=== PATIENT | female | born 1995 | race Caucasian/White ===

== ENCOUNTER 2018-02-21 07:59 | Emergency (ER) | payer BC, OTHER ==
[2018-02-21 08:04] VITALS: BP 117/72
--- NOTE | 2018-02-21 08:17 | EDPHY ---
H & P Time Seen by Provider: 02/21/18 08:06 HPI/ROS: CHIEF COMPLAINT: Medication refill request HISTORY OF PRESENT ILLNESS: 22-year-old female presents to the emergency department requesting refill of her metformin. The patient takes 500 mg daily for her PCOS. She has been on this medication for the last 2 and half years. She states that she is originally from [facility] and is studying at [employer] but is here studying at [employer] for this summer and has been without her metformin medication for the last 2 weeks. She does not have a primary care provider. She has not gone to the [employer]. Currently she has no complaints. Denies abdominal pain, chest pain, difficulty breathing. Her last menstrual period was January 07. She has a history of irregular periods. She just recently stopped oral contraceptive pills. She denies . REVIEW OF SYSTEMS: Constitutional: No fever, no chills. Eyes: No double or blurry vision. ENT: No sore throat. Respiratory: No cough, no shortness of breath. Cardiac: No chest pain. Gastrointestinal: No abdominal pain, vomiting or diarrhea. Genitourinary: No dysuria. Musculoskeletal: No neck or back pain. Skin: No rashes. Neurological: No headache. Past Medical/Surgical History: Polycystic ovarian syndrome Social History: Originally from 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 Vital signs are stable Eyes: Pupils equal and round. Extraocular motions are all intact. ENT: Mouth: Mucous membranes moist. Respiratory: No wheezing, rhonchi, or rales, lungs are clear to auscultation. Cardiovascular: Regular rate and rhythm. Gastrointestinal: Abdomen is soft and nontender, no masses, no rebound or guarding, bowel sounds normal. Neurological: Alert and oriented x 3, cranial nerves II through XII grossly intact Skin: Warm and dry, no rashes. Musculoskeletal: Nontender to palpate along the cervical, thoracic or lumbar spine. Neck is supple. Extremities: Full range of motion and no peripheral edema. Psychiatric: Patient is oriented X 3, there is no agitation. Constitutional: Initial Vital Signs Temperature (C) 36.7 C 02/21/18 07:59 Heart Rate 65 02/21/18 07:59 Respiratory Rate 18 02/21/18 07:59 Blood Pressure 117/72 02/21/18 07:59 O2 Sat (%) 97 02/21/18 07:59 O2 Delivery Mode Room Air Allergies/Adverse Reactions: No Known Allergies Allergy (Unverified 02/21/18 08:04) Home Medications: Medication Instructions Recorded Metformin HCl [Fortamet] 500 mg PO DAILY #30 tab 02/21/18 metFORMIN HCL [Metformin HCl] 500 mg PO DAILY 02/21/18 Medical Decision Making ED Course/Re-evaluation: 22-year-old healthy female who currently has no complaints presents to the emergency department requesting refill of her metformin 500 mg. She has been on this medication for over 2 and half years. She was given a prescription for 500 mg metformin #30. She was also given referral to primary care provider operations support professionals, car lubricator on-call as well as [facility]. Patient was encouraged to return if she developed abdominal pain or any other concerns. She was comfortable with this plan. Differential Diagnosis: Including but not limited to medication refill request, polycystic ovarian syndrome, urinary tract infection, pyelonephritis, kidney stone, acute appendicitis Departure - Departure Disposition: Home, Routine, Self-Care Clinical Impression: Medication refill, Polycystic ovarian syndrome Condition: Good Instructions: Polycystic Ovarian Syndrome (ED), Medicine Refill (ED) Additional Instructions: Continue your metformin as prescribed. Follow up with primary care provider or [facility] or OBGYN as discussed. Return to the emergency department if you develop any abdominal pain or if you have any other concerns. Referrals: JENNIFER Cid,. [Clinic] - As per Instructions Rita Zapata MD [Medical Doctor] - As per Instructions (Primary care provider operations support professionals) Tamera Marshall DO [Doctor of Osteopathy] - As per Instructions (OBGYN on-call) Prescriptions: Metformin HCl [Fortamet] 500 mg PO DAILY #30 tab
== END 2018-02-21 08:19 | disposition home or self-care (01) ==
DX: Z76.0 Encounter for issue of repeat prescription (principal); E28.2 Polycystic ovarian syndrome

== ENCOUNTER 2018-04-05 17:33 | Emergency (ER) | payer BC, OTHER ==
[2018-04-05 17:46] VITALS: BP 126/80
--- NOTE | 2018-04-05 17:53 | EDPHY ---
H & P Time Seen by Provider: 04/05/18 17:49 HPI/ROS: CHIEF COMPLAINT: Medication refill request HISTORY OF PRESENT ILLNESS: 22-year-old female history of polycystic ovarian syndrome for which he takes 500 mg daily of metformin. She has been on this medication for the past 2 and half years. 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 She was seen in the ER on February 21 for medication refill request. She is about to run out of her metformin and is returning to [employer] [facility] [employer] in a few weeks where she can follow up with regular doctor. She is currently asymptomatic. She has been unable to establish primary care because the short duration for time in [place]. She denies: Chest pain, dyspnea, abdominal pain, . PRIMARY CARE PROVIDER: None local REVIEW OF SYSTEMS: A ten point review of systems was performed and is negative with the exception of the items mentioned in the HPI PAST MEDICAL & SURGICAL HISTORY: Polycystic ovarian syndrome SOCIAL HISTORY:Student nonsmoker PHYSICAL EXAM (Prior to examination, patient consented to physical exam, hands were washed and my usual and customary physical exam procedures followed) 1) GENERAL: Well-developed, well-nourished, alert and oriented. Appears to be in no acute distress. 2) HEAD: Normocephalic, atraumatic 3) HEENT: Sclera anicteric. 4) NECK: Full range of motion, no meningeal signs. 5) LUNGS: Clear auscultation bilaterally, no wheezes, no rhonchi, no retractions. 6) HEART: Regular rate and rhythm, no murmur, no heave, no gallop. 7) ABDOMEN: No guarding, no rebound, no focal tenderness, negative McBurney's, negative Perez's, negative Rovsing's, negative peritoneal sign, 8) MUSCULOSKELETAL: Moving all extremities 9) BACK: No visual or palpable abnormality. 10) SKIN: No rash, no petechiae. 11) Psychiatric: Patient is oriented X 3, there is no agitation. DIFFERENTIAL DIAGNOSIS: In no particular order including but limited to medication refill request, polycystic ovarian syndrome, infectious etiology Smoking Status: Never smoked Constitutional: Initial Vital Signs Temperature (C) 36.7 C 04/05/18 17:43 Heart Rate 67 07/02/18 17:43 Respiratory Rate 18 04/05/18 17:43 Blood Pressure 126/80 H 04/05/18 17:43 O2 Sat (%) 97 04/05/18 17:43 O2 Delivery Mode Room Air Allergies/Adverse Reactions: No Known Allergies Allergy (Verified 04/05/18 17:42) Home Medications: Medication Instructions Recorded Metformin HCl [Fortamet] 500 mg PO DAILY #30 tab 02/21/18 metFORMIN HCL [Metformin HCl] 500 mg PO DAILY 02/21/18 metFORMIN HCL [Metformin HCl] 500 mg PO DAILY 60 Days tablet 04/05/18 MDM/Departure - [facility] ED Course/Re-evaluation: I provided refill for metformin. She will follow up with her PCP when she returns to [place] in a few weeks. Usual and customary discharge precautions and instructions provided. I saw this patient independently based on established practice protocols. Care of patient under supervision of secondary supervising physician Dr Bronson . - Depart Disposition: Home, Routine, Self-Care Clinical Impression: Medication refill, Polycystic ovary syndrome Condition: Good Instructions: Polycystic Ovarian Syndrome (ED) Prescriptions: metFORMIN HCL [Metformin HCl] 500 mg PO DAILY 60 Days tablet Referrals: Follow-up, with your doctor at [facility] at [place] david [Other] - As per Instructions
== END 2018-04-05 17:59 | disposition home or self-care (01) ==
DX: Z76.0 Encounter for issue of repeat prescription (principal); E28.2 Polycystic ovarian syndrome